=== PATIENT | male | born 1990 | race African-American/Black ===

== ENCOUNTER 2024-11-08 12:50 | Inpatient (IN) | payer OTHER ==
[2024-11-08 13:10] VITALS: BMI 26.3
[2024-11-08] MEDS ORDERED: chlordiazePOXIDE HCL 25 MG CAPSULE PO PRN (13:56)
[2024-11-08] MEDS ORDERED: guaiFENesin 600 MG TABLET.ER (FP) PO PRN (13:56)
[2024-11-08] MEDS ORDERED: MAGNESIUM HYDROX 2400MG/30ML ORAL SUSPENSION 30 ML CUP PO PRN (13:56)
[2024-11-08] MEDS ORDERED: NALOXONE (NARCAN) HCL 4 MG/0.1 ML SPRAY NS PRN (13:56)
[2024-11-08] MEDS ORDERED: BISMUTH SUBSALICYLATE 524 MG/30 ML PO PRN (13:56)
[2024-11-08] MEDS ORDERED: MAG HYDROX/AL HYDROX/SIMETH 30 ML UNIT-DOSE CUP PO PRN (13:56)
[2024-11-08] MEDS ORDERED: ONDANSETRON *ODT* 4 MG TABLET SL PRN (13:56)
[2024-11-08] MEDS ORDERED: IBUPROFEN 400 MG TABLET (FP) PO PRN (13:56)
[2024-11-08] MEDS ORDERED: POLYETHYLENE GLYCOL (HEALTHYLAX) 3350 17 GM PACKET PO PRN (13:56)
[2024-11-08] MEDS ORDERED: BENZONATATE 200 MG CAPSULE PO PRN (13:56)
[2024-11-08] MEDS ORDERED: LOPERAMIDE HCL 2 MG CAPSULE PO PRN (13:56)
[2024-11-08] MEDS ORDERED: BENZOCAINE/MENTHOL (CHLORASEPTIC ) LOZENGE MM PRN (13:56)
[2024-11-08] MEDS ORDERED: IBUPROFEN 600 MG TABLET (FP) PO PRN (13:56)
[2024-11-08] MEDS ORDERED: hydrOXYzine PAMOATE 25 MG CAPSULE (FP) PO PRN (13:56)
[2024-11-08] MEDS ORDERED: ACETAMINOPHEN 325 MG TABLET (FP) PO PRN (13:56)
[2024-11-08] MEDS ORDERED: DICYCLOMINE HCL 10 MG CAPSULE PO PRN (13:56)
[2024-11-08] MEDS ORDERED: NALTREXONE HCL 50 MG TABLET PO ONE (15:00)
[2024-11-08] MEDS ORDERED: chlordiazePOXIDE HCL 25 MG CAPSULE ONE (16:57)
[2024-11-08] MEDS: chlordiazePOXIDE HCL 25 MG CAPSULE PO SCH (17:00)
[2024-11-08] MEDS: NALTREXONE HCL 50 MG TABLET PO ONE (17:29)
[2024-11-08] MEDS: THIAMINE 100 MG TABLET PO SCH (22:07)
[2024-11-08] MEDS: MELATONIN 5 MG TABLETS PO SCH (22:07)
[2024-11-09] MEDS: NICOTINE 21 MG/24 HOURS TOPICAL PATCH TD SCH (10:09)
[2024-11-09] MEDS: NALTREXONE HCL 50 MG TABLET PO SCH (10:09)
[2024-11-09] MEDS: PRENATAL VITAMINS W/ FOLIC ACID TABLET (FP) PO SCH (10:09)
[2024-11-09 11:18] LABS: HEMATOCRIT 43.5 % (40.1-51.0); HEMOGLOBIN 14.2 g/dL (13.7-17.5); MCHC 32.6 g/dl (32.3-36.5); MEAN CELL VOLUME 91.8 fl (79.0-92.2); MEAN PLT VOLUME 10.8 fl (9.4-12.4); PLATELET COUNT 192 x10^3/uL (163-337); RDW 12.8 % (12.0-15.6)
[2024-11-09 11:42] LABS: POTASSIUM 4.7 mmol/L (3.5-5.1)
[2024-11-09 11:49] LABS: BLOOD UREA NITROGEN 12.5 mg/dL (7-18); CALCIUM 9.3 mg/dL (8.5-10.1)
[2024-11-09 11:53] LABS: BILIRUBIN,TOTAL 0.6 mg/dL (0.2-1)
[2024-11-09 11:54] LABS: TOT PROT 7.6 g/dl (6.4-8.2)
[2024-11-09] MEDS: METHOCARBAMOL 500 MG TABLET PO PRN (22:07)
[2024-11-10] MEDS: chlordiazePOXIDE HCL 25 MG CAPSULE PO SCH (05:47)
[2024-11-10 16:54] VITALS: BP 144/72; PULSE 77; RESP 16; TEMP 97.5
[2024-11-11] MEDS ORDERED: chlordiazePOXIDE HCL 10 MG CAPSULE PO PRN
[2024-11-11] MEDS ORDERED: chlordiazePOXIDE HCL 10 MG CAPSULE PO SCH (05:00)
[2024-11-12] MEDS ORDERED: chlordiazePOXIDE HCL 10 MG CAPSULE PO SCH (05:00)
[2024-11-13] MEDS ORDERED: chlordiazePOXIDE HCL 10 MG CAPSULE PO ONE (05:00)
== END 2024-11-10 18:08 | disposition left against medical advice (07) | DRG 770 ==
LOC: YASAS 12:50 → Y3N 16:28
PROVIDERS: ADMIT Allergy & Immunology; ATTEND Allergy & Immunology
PROC: HZ2ZZZZ Detoxification Services for Substance Abuse Treatment (ICD-10-PCS; principal; 2024-11-08)
DX: F10.230 Alcohol dependence with withdrawal, uncomplicated (principal); F17.210 Nicotine dependence, cigarettes, uncomplicated; F41.9 Anxiety disorder, unspecified; G47.00 Insomnia, unspecified; I10 Essential (primary) hypertension
CPT/HCPCS: 36415; 80053; 80305; 80307; 85027; 86780; 93005; 93010

== ENCOUNTER 2025-01-10 10:53 | Inpatient (IN) | payer OTHER ==
[2025-01-10 11:16] VITALS: BMI 25.8
[2025-01-10] MEDS ORDERED: hydrOXYzine PAMOATE 25 MG CAPSULE (FP) PO PRN (11:26)
[2025-01-10] MEDS ORDERED: ACETAMINOPHEN 325 MG TABLET (FP) PO PRN (11:26)
[2025-01-10] MEDS ORDERED: POLYETHYLENE GLYCOL (HEALTHYLAX) 3350 17 GM PACKET PO PRN (11:26)
[2025-01-10] MEDS ORDERED: NALOXONE (NARCAN) HCL 4 MG/0.1 ML SPRAY NS PRN (11:26)
[2025-01-10] MEDS ORDERED: LOPERAMIDE HCL 2 MG CAPSULE PO PRN (11:26)
[2025-01-10] MEDS ORDERED: ONDANSETRON *ODT* 4 MG TABLET SL PRN (11:26)
[2025-01-10] MEDS ORDERED: BENZONATATE 200 MG CAPSULE PO PRN (11:26)
[2025-01-10] MEDS ORDERED: BENZOCAINE/MENTHOL (CHLORASEPTIC ) LOZENGE MM PRN (11:26)
[2025-01-10] MEDS ORDERED: DICYCLOMINE HCL 10 MG CAPSULE PO PRN (11:26)
[2025-01-10] MEDS ORDERED: BISMUTH SUBSALICYLATE 262 MG/15 ML BTL PO PRN (11:26)
[2025-01-10] MEDS ORDERED: guaiFENesin 600 MG TABLET.ER (FP) PO PRN (11:26)
[2025-01-10] MEDS ORDERED: MAG HYDROX/AL HYDROX/SIMETH 30 ML UNIT-DOSE CUP PO PRN (11:26)
[2025-01-10] MEDS ORDERED: IBUPROFEN 400 MG TABLET (FP) PO PRN (11:26)
[2025-01-10] MEDS ORDERED: IBUPROFEN 600 MG TABLET (FP) PO PRN (11:26)
[2025-01-10] MEDS ORDERED: NICOTINE POLACRILEX 2 MG GUM BUC PRN (11:26)
[2025-01-10] MEDS ORDERED: MAGNESIUM HYDROX 2400MG/30ML ORAL SUSPENSION 30 ML CUP PO PRN (11:26)
[2025-01-10] MEDS: NALTREXONE HCL 50 MG TABLET PO SCH (12:52)
[2025-01-10] MEDS: MELATONIN 5 MG TABLETS PO SCH (22:48)
[2025-01-10] MEDS: THIAMINE 100 MG TABLET PO SCH (22:48)
[2025-01-11] MEDS: PRENATAL VITAMINS W/ FOLIC ACID TABLET (FP) PO SCH (09:32)
[2025-01-11] MEDS: NICOTINE 14 MG/24 HOURS TOPICAL PATCH TD SCH (09:33)
[2025-01-11 10:52] LABS: MCHC 32.3 g/dl (32.3-36.5); MEAN CELL VOLUME 92.3 fl (79.0-92.2); MEAN PLT VOLUME 11.2 fl (9.4-12.4); RDW 13.5 % (12.0-15.6)
[2025-01-11 12:27] LABS: CO2 27.0 mmol/L (21-32); GLUCOSE,RANDOM 172.0 mg/dL (74-106)
[2025-01-11 12:30] LABS: CREATININE 1.1 mg/dL (0.55-1.3); SGOT/AST 94.0 U/L (15-37); SGPT/ALT 95.0 U/L (13-61)
[2025-01-11 12:32] LABS: TOT PROT 7.3 g/dl (6.4-8.2)
[2025-01-11 12:34] LABS: ALK PHOS 69.0 U/L (45-117)
[2025-01-11] MEDS: amLODIPine BESYLATE 10 MG TABLET (FP) PO ONE (17:36)
[2025-01-11] MEDS: METHOCARBAMOL 500 MG TABLET PO PRN (22:30)
[2025-01-12 11:59] VITALS: RESP 16
[2025-01-12 14:20] VITALS: BP 135/60; PULSE 60; TEMP 97.8
== END 2025-01-12 13:42 | disposition other institution (70) | DRG 775 ==
LOC: YASAS 10:53 → Y3N 11:59
PROVIDERS: ADMIT Family Medicine; ATTEND Allergy & Immunology
PROC: HZ2ZZZZ Detoxification Services for Substance Abuse Treatment (ICD-10-PCS; principal; 2025-01-10)
DX: F10.20 Alcohol dependence, uncomplicated (principal); F12.20 Cannabis dependence, uncomplicated; F17.210 Nicotine dependence, cigarettes, uncomplicated; F10.280 Alcohol dependence with alcohol-induced anxiety disorder; F19.24 Other psychoactive substance dependence with psychoactive substance-induced mood disorder; F41.9 Anxiety disorder, unspecified; G47.00 Insomnia, unspecified; I10 Essential (primary) hypertension
CPT/HCPCS: 36415; 80053; 80305; 80307; 85027; 86780; 87811; 93005; 93010